=== PATIENT | male | born 1955 | race Caucasian/White ===

== ENCOUNTER 2016-12-06 16:19 | Emergency (ER) | payer BC ==
[~2016-12-06] VITALS: Ht 190.5 cm; Wt 71.7 kg
[~2016-12-06 16:19] MED LIST: CYCLOBENZAPRINE10 MG ORAL; KEFLEX500 MG ORAL; NAPROSYN500 M1 ORAL; NASONEX17 GM NASAL; NORCO 5-325 TA1 EACH ORAL; PROAIR HFA8.5 GM INH; ROBAXIN500 MG PO
[2016-12-06 16:43] VITALS: BP 129/72
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
[2016-12-06] MEDS ORDERED: TIZANIDINE HCL4 MG ORAL (17:22)
[2016-12-06] MEDS ORDERED: AUGMENTIN 875-1 EAC1 ORAL (17:22)
[2016-12-06] MEDS ORDERED: FLONASE ALLERG9.9 ML NS (17:22)
[2016-12-06 17:42] VITALS: BP 132/76
== END 2016-12-06 17:43 | disposition home or self-care (01) ==
LOC: EMR 17:25
DX: J01.10 Acute frontal sinusitis, unspecified (principal); M62.838 Other muscle spasm; Z88.6 Allergy status to analgesic agent; Z91.011 Allergy to milk products
CPT/HCPCS: 99284

== ENCOUNTER 2017-09-10 13:36 | Emergency (ER) | payer SELFPAY ==
[~2017-09-10] VITALS: Ht 190.5 cm; Wt 67.1 kg
[~2017-09-10 13:36] MED LIST changes: +AUGMENTIN 875-1 EAC1 ORAL; +FLONASE ALLERG9.9 ML NS; +TIZANIDINE HCL4 MG ORAL
[2017-09-10 13:50] VITALS: BP 139/71
--- NOTE | 2017-09-10 14:37 | Emergency Room Report ---
History of Present Illness General Chief Complaint: Upper Respiratory Illness Source: Patient, Medical Record Present Illness HPI 62 YO Male presents to the ED c/o: maxillary fullness/ pressure discomfort that is 7/10 in severity with nasal congestion x 6 weeks. pt. reports purulent nasal d/c x 2 days. Patient states that he has a history of nasal polyps that his doctor recommended surgical removal for her. Patient states that he did not undergo the surgery he attempted herbal remedies which reduced his symptoms however patient states that over the course of the last 6 weeks he's had significant sinus pressure with nasal congestion, inability to breathe out of the affected side and new-onset purulent nasal discharge. he denies fevers or chills. Denies trauma, fall, dizziness. he denies history of immunocompromise or diabetes. Denies facial rash. Denies CP, Palpitations, LOC, AMS, dizziness , Changes in Vision, Sensation, paresthesias, or a sudden severe headache. Pt. also requests refill of his albuterol inhaler. Allergies: Coded Allergies: Dairy (Verified Allergy, Mild, 05/17/15) CODEINE (Unverified Allergy, Unknown, Shortness of Breath, 05/30/15) Patient History Past Medical History: see triage record, DM, other - nasal polyps and environmental allergies. Past Surgical History: none Pertinent Family History: none Reviewed Nursing Documentation: PMH: Agreed, PSxH: Agreed Nursing Documentation-PMH Past Medical History: No History, Except For Hx Asthma: Yes - Rhinoplasty in 1976 Review of Systems All Other Systems: negative except mentioned in HPI Physical Exam Vital Signs Date Time Temp Pulse Resp B/P (MAP) Pulse Ox O2 Delivery O2 Flow Rate FiO2 09/10/17 13:40 97.5 54 18 139/71 100 Room Air Sp02 EP Interpretation: reviewed, normal General Appearance: no apparent distress, alert, GCS 15, non-toxic Head: normocephalic, atraumatic Eyes: bilateral eye normal inspection, bilateral eye PERRL, bilateral eye EOMI ENT: hearing grossly normal, normal voice, nasal congestion, other - right frontal maxillary sinus TTP, obvious swollen visible nasal poly in the right nare, some mild thick white/yellow opaque nasal d/c noted. Neck: full range of motion Respiratory: chest non-tender, lungs clear, normal breath sounds, speaking full sentences Cardiovascular #1: regular rate, rhythm Musculoskeletal: back normal, gait/station normal, normal range of motion Neurologic: alert, oriented x3, responsive, motor strength/tone normal, sensory intact, speech normal Skin: normal color, no rash, warm/dry, well hydrated Lymphatic: no adenopathy Medical Decision Making PA Attestation Dr. Peter is my supervising Physician whom patient management has been discussed with. Diagnostic Impression: Primary Impression: Sinusitis with nasal polyps ER Course 62 YO Male presents to the ED c/o: maxillary fullness/ pressure discomfort that is 7/10 in severity with nasal congestion x 6 weeks. pt. reports purulent nasal d/c x 2 days. Patient states that he has a history of nasal polyps that his doctor recommended surgical removal for her. Patient states that he did not undergo the surgery he attempted herbal remedies which reduced his symptoms however patient states that over the course of the last 6 weeks he's had significant sinus pressure with nasal congestion, inability to breathe out of the affected side and new-onset purulent nasal discharge. he denies fevers or chills. Denies trauma, fall, dizziness. he denies history of immunocompromise or diabetes. Denies facial rash. Denies CP, Palpitations, LOC, AMS, dizziness , Changes in Vision, Sensation, paresthesias, or a sudden severe headache. Pt. also requests refill of his albuterol inhaler. Ddx considered but are not limited to URI, pneumonia, PE, strep pharyngitis, meningitis. Vital signs: Pt. is afebrile, the remaining VS are WNL H&PE are most consistent with subacute SINUSITIS secondary to nasal polyps. ORDERS: none required at this time, the diagnosis is clinical ED INTERVENTIONS: None required at this time. d/w pt. conservative treatment of his symptoms with nasal steroids, and a course of oral antibiotics and to follow up with an ENT SPECIALIST. pt given a list of primary care clinics for follow up. d/w pt. to return to the ED with worsening or new symptoms. DISCHARGE: At this time pt. is stable for d/c to home. Will provide printed patient care instructions, and any necessary prescriptions. Care plan and follow up instructions have been discussed with the patient prior to discharge. Last Vital Signs Date Time Temp Pulse Resp B/P (MAP) Pulse Ox O2 Delivery O2 Flow Rate FiO2 09/10/17 13:40 97.5 54 18 139/71 100 Room Air Disposition: HOME, SELF-CARE Condition: Stable Scripts Albuterol Sulfate* (ALBUTEROL SULFATE MDI*) 8.5 Gm Hfa.aer.ad 2 PUFF INH Q3H, #1 INH 0 Refills Prov: Sandie Restrepo 09/10/17 Fluticasone Furoate (FLONASE SENSIMIST) 9.9 Ml [place].susp 2 SPRAYS NS DAILY, #9.9 ML Prov: Sandie Restrepo 09/10/17 Amoxicillin/Potassium Clav 875-125* (AUGMENTIN 875-125 TABLET*) 1 Each Tablet 1 TAB ORAL TWICE A DAY for 10 Days, #20 TAB Prov: Sandie Restrepo 09/10/17 Referrals: NOT CHOSEN IPA/,REFERRING (PCP) Patient Instructions: Sinusitis, Adult, [id number] Additional Instructions: Take medications as directed. Follow up with a ENT SPECIALIST in 3-5 days, even if your symptoms have resolved. --Please review list of primary care clinics, if you do not already have a primary care provider Return sooner to ED if new symptoms occur, or current symptoms become worse. - Please note that this Emergency Department Report was dictated using [employer] adjuster leader technology software, occasionally this can lead to erroneous entry secondary to interpretation by the dictation equipment. Sandie Restrepo Sep 10, 2017 14:37
[2017-09-10] MEDS ORDERED: FLONASE SENSIM9.9 ML NS (14:41)
[2017-09-10] MEDS ORDERED: AUGMENTIN 875-1 EAC1 ORAL (14:41)
[2017-09-10 14:53] VITALS: BP 139/71
[2017-09-10] MEDS ORDERED: ALBUTEROL SULF8.5 GM INH (15:04)
[2017-10-04] MEDS ORDERED: GUAIFENESIN1200 MG PO (14:52)
[2017-10-04] MEDS ORDERED: PROMETHAZINE-D118 ML ORAL (14:52)
[2017-10-04] MEDS ORDERED: CLARITIN-D 121 EAC1 ORAL (14:52)
== END 2017-09-10 14:55 | disposition home or self-care (01) ==
LOC: EMR 14:05
DX: J32.9 Chronic sinusitis, unspecified (principal); J33.9 Nasal polyp, unspecified
CPT/HCPCS: 99283

== ENCOUNTER 2017-10-03 16:57 | Emergency (ER) | payer OTHER ==
[~2017-10-03] VITALS: Ht 190.5 cm; Wt 67.1 kg
[~2017-10-03 16:57] MED LIST changes: +ALBUTEROL SULF8.5 GM INH; +FLONASE SENSIM9.9 ML NS
[2017-10-03 17:06] VITALS: BP 111/78
--- NOTE | 2017-10-03 17:15 | Emergency Room Report ---
History of Present Illness General Chief Complaint: Flu Like Symptoms Present Illness HPI 62-year-old male presents to the emergency department complaining of cough, body -aches, subjective fevers and chills, runny nose and nasal congestion x6 days. Pt reports hx of asthma with increased symptoms requiring use of inhaler which he is now out of. Reports sore throat. denies pain at this time. Patient reports multiple coworkers had similar symptoms just prior to her. Patient also is here with his who has the same symptoms as well. Patient reports that subjective fevers have resolved as of 3 days ago. Denies high fevers, lethargy, neck stiffness, irritability, dehydration, V/D. reports some nausea but describes more decreased appetite. denies abdominal pain. Denies Cp, Palpitations, LOC, AMS, seizures, paresthesias, or changes in Hearing or vision , no Sudden severe HOWELL. Allergies: Coded Allergies: Dairy (Verified Allergy, Mild, 05/17/15) CODEINE (Unverified Allergy, Unknown, Shortness of Breath, 05/30/15) Patient History Past Medical History: see triage record Past Surgical History: none Pertinent Family History: none Immunizations: UTD Reviewed Nursing Documentation: PMH: Agreed, PSxH: Agreed Nursing Documentation-PMH Hx Asthma: Yes - Rhinoplasty in 1976 Review of Systems All Other Systems: negative except mentioned in HPI Physical Exam Vital Signs Date Time Temp Pulse Resp B/P (MAP) Pulse Ox O2 Delivery O2 Flow Rate FiO2 10/03/17 17:06 99.1 99 20 111/78 96 Room Air Sp02 EP Interpretation: reviewed, normal General Appearance: no apparent distress, alert, GCS 15, non-toxic Head: normocephalic, atraumatic Eyes: bilateral eye normal inspection, bilateral eye PERRL ENT: hearing grossly normal, normal voice, TMs + canals normal, uvula midline, nasal congestion Neck: full range of motion, no meningismus, no bony tend Respiratory: chest non-tender, lungs clear, normal breath sounds, speaking full sentences Cardiovascular #1: regular rate, rhythm, normal capillary refill Rectal: deferred Genitourinary: normal inspection Musculoskeletal: back normal, gait/station normal, normal range of motion, non- tender Neurologic: alert, oriented x3, responsive, motor strength/tone normal, sensory intact, speech normal, grossly normal Psychiatric: judgement/insight normal Skin: normal color, no rash, warm/dry, well hydrated Lymphatic: no adenopathy Medical Decision Making PA Attestation Dr. torres is my supervising Physician whom patient management has been discussed with. Diagnostic Impression: Primary Impression: Upper respiratory infection, viral ER Course Pt. 62-year-old male presents to the emergency department complaining of cough, body-aches, subjective fevers and chills, runny nose and nasal congestion x6 days. Pt reports hx of asthma with increased symptoms requiring use of inhaler which he is now out of. Reports sore throat. denies pain at this time. Patient reports multiple coworkers had similar symptoms just prior to her. Patient also is here with his who has the same symptoms as well. Patient reports that subjective fevers have resolved as of 3 days ago. Denies high fevers, lethargy, neck stiffness, irritability, dehydration, V/D. reports some nausea but describes more decreased appetite. denies abdominal pain. Denies Cp, Palpitations, LOC, AMS, seizures, paresthesias, or changes in Hearing or vision , no Sudden severe HOWELL. Ddx considered but are not limited to URI, pneumonia, PE, strep pharyngitis, meningitis. Vital signs: Pt. is afebrile, the remaining VS are WNL H&PE are most consistent with URI- no meningeal signs, oropharynx is not involved, no evidence of bacterial infection at this time. ORDERS: none required at this time, the diagnosis is clinical ED INTERVENTIONS: None required at this time. Nebs not needed will d/c with refills for his albuterol. Lungs are CTA. DISCHARGE: At this time pt. is stable for d/c to home. Will provide printed patient care instructions, and any necessary prescriptions. Care plan and follow up instructions have been discussed with the patient prior to discharge. Last Vital Signs Date Time Temp Pulse Resp B/P (MAP) Pulse Ox O2 Delivery O2 Flow Rate FiO2 10/03/17 17:06 99.1 99 20 111/78 96 Room Air Disposition: HOME, SELF-CARE Condition: Stable Scripts D-Methorphan Hb/Prometh Hcl* (PROMETHAZINE-DM SYRUP*) 118 Ml Syrup 5 ML ORAL Q6H Y for For Cough, #118 ML 0 Refills Prov: Sandie Restrepo 10/03/17 Albuterol Sulfate* (ALBUTEROL SULFATE MDI*) 8.5 Gm Hfa.aer.ad 2 PUFF INH Q3H, #1 INH 3 Refills Prov: Sandie Restrepo 10/03/17 Loratadine/Pseudoephedrine (CLARITIN-D 12 HOUR TABLET) 1 Each Tab.er.12h 1 TAB ORAL EVERY 12 HOURS for 10 Days, #20 TAB Prov: Sandie Restrepo 10/03/17 Guaifenesin (Guaifenesin) 1,200 Mg Tab.er.12h 1200 MG PO BID, #20 TAB Prov: Sandie Restrepo 10/03/17 Patient Instructions: Upper Respiratory Infection, Adult, [id number] Additional Instructions: Take medications as directed. Follow up with a Primary Care Provider in 3-5 days, even if your symptoms have resolved. --Please review list of primary care clinics, if you do not already have a primary care provider Return sooner to ED if new symptoms occur, or current symptoms become worse. - Please note that this Emergency Department Report was dictated using [employer] technology software, occasionally this can lead to erroneous entry secondary to interpretation by the dictation equipment. Sandei Restrepo Oct 03, 2017 17:15
[2017-10-03] MEDS ORDERED: ALBUTEROL SULF8.5 GM INH (17:33)
[2017-10-03] MEDS ORDERED: PROMETHAZINE-D118 ML ORAL (17:33)
[2017-10-03] MEDS ORDERED: GUAIFENESIN1200 MG PO (17:33)
[2017-10-03] MEDS ORDERED: CLARITIN-D 121 EAC1 ORAL (17:33)
[2017-10-03 17:50] VITALS: BP 111/78
[2017-10-04] MEDS ORDERED: GUAIFENESIN1200 MG PO (14:52)
[2017-10-04] MEDS ORDERED: PROMETHAZINE-D118 ML ORAL (14:52)
[2017-10-04] MEDS ORDERED: CLARITIN-D 121 EAC1 ORAL (14:52)
== END 2017-10-03 17:50 | disposition home or self-care (01) ==
LOC: EMR 17:50
DX: J06.9 Acute upper respiratory infection, unspecified (principal); B34.9 Viral infection, unspecified; J45.909 Unspecified asthma, uncomplicated; Z88.6 Allergy status to analgesic agent
CPT/HCPCS: 99283

== ENCOUNTER 2017-10-15 12:45 | Emergency (ER) | payer OTHER ==
[~2017-10-15] VITALS: Ht 190.5 cm; Wt 61.2 kg
[~2017-10-15 12:45] MED LIST changes: +CLARITIN-D 121 EAC1 ORAL; +GUAIFENESIN1200 MG PO; +PROMETHAZINE-D118 ML ORAL
[2017-10-15 13:10] VITALS: BP 128/72
[2017-10-15] MEDS ORDERED: AMOXICILLIN500 MG ORAL (13:33)
[2017-10-15] MEDS ORDERED: PROMETHAZINE-C118 M1 ORAL (13:33)
[2017-10-15] MEDS ORDERED: IBUPROFEN600 MG ORAL (13:33)
[2017-10-15] MEDS ORDERED: PREDNISONE20 MG ORAL ×2 (13:33→13:42)
[2017-10-15] MEDS ORDERED: ALBUTEROL SULF8.5 GM INH (13:36)
--- NOTE | 2017-10-15 13:36 | Emergency Room Report ---
History of Present Illness General Chief Complaint: Flu Like Symptoms Source: Patient, Family Member - Present Illness HPI 62-year-old male presents ER complaining of cough and congestion x2 weeks. Patient complains of subjective fever. Patient complains of non productive cough but "feels sputum in his throat". Patient reports recent history of laryngitis and flu-like symptoms 3 weeks ago. Patient reports a history of sick contacts in the household, presents to ER with his with similar symptoms. Reports history of work contact recently diagnosed with influenza. Patient reports history of asthma, denies wheezing at this time. Patient reports use of albuterol inhaler with no relief of cough symptoms. Patient denies difficulty breathing. Patient denies smoking, recent travel. Patient denies nausea, vomiting, diarrhea, SOB, chest pain. Allergies: Coded Allergies: Dairy (Verified Allergy, Mild, 05/17/15) Patient History Past Medical History: see triage record, asthma Social History: Denies: smoking, alcohol use, drug use Immunizations: UTD Reviewed Nursing Documentation: PMH: Agreed, PSxH: Agreed Nursing Documentation-PMH Past Medical History: No History, Except For Hx Asthma: Yes - Rhinoplasty in 1976 Review of Systems All Other Systems: negative except mentioned in HPI Physical Exam Vital Signs Date Time Temp Pulse Resp B/P (MAP) Pulse Ox O2 Delivery O2 Flow Rate FiO2 10/15/17 12:55 100.8 109 16 128/72 94 Room Air Sp02 EP Interpretation: reviewed, normal General Appearance: no apparent distress, alert, GCS 15, non-toxic Head: normocephalic, atraumatic Eyes: bilateral eye normal inspection, bilateral eye PERRL ENT: hearing grossly normal, normal pharynx, no angioedema, normal voice, uvula midline, moist mucus membranes, other - post nasal drip Neck: full range of motion, supple/symm/no masses Respiratory: chest non-tender, no respiratory distress, no retraction, no accessory muscle use, no wheezing, crackles, speaking full sentences Cardiovascular #1: regular rate, rhythm, no edema Musculoskeletal: back normal, gait/station normal, normal range of motion, non- tender Neurologic: alert, oriented x3, responsive, motor strength/tone normal, sensory intact, speech normal Psychiatric: judgement/insight normal, memory normal, mood/affect normal, no suicidal/homicidal ideation Skin: normal color, no rash, warm/dry, well hydrated Lymphatic: no adenopathy Medical Decision Making PA Attestation Dr. Espinoza is my supervising Physician whom patient management has been discussed with. Diagnostic Impression: Primary Impression: Atypical pneumonia ER Course Pt presents to ED c/o cough and congestion. DDX considered but are not limited to influenza, viral URI, pneumonia, strep throat, rhinitis, sinusitis. VITAL SIGNS Patient is febrile with 100.8 degree fever. Abnormal vital signs likely due to history of sick contacts and history of asthma. ORDERS: none required at this time, diagnosis is clinical. ED INTERVENTIONS:none required at this time, diagnosis is clinical. DISCHARGE: -Rx provided for Amoxicillin. -Rx given for Prednisone. -Rx provided for Albuterol MDI. -Rx given for Promethazine with codeine cough syrup for cough sx. Patient advised not to drink alcohol, drive, or operate heavy machinery while taking cough syrup as this may cause drowsiness. -Rx provided for Motrin at home for fever and pain symptoms. Patient instructed to take at home. At this time pt is stable for d/c to home. Patient stated he is ready to be discharged to home. Discussed plan with Dr. Espinoza who agreed with current treatment. Patient to take medications as instructed Will provide with patient care instructions and any necessary prescriptions. Care plan and follow-up instructions provided. Patient instructed to follow-up with primary care provider in 3 - 5 days. Patient questions asked and answered. ER precautions given. Patient instructed to return to ER immediately for any new or worsening of symptoms including but not limited to increasing SOB, persistent fever. Last Vital Signs Date Time Temp Pulse Resp B/P (MAP) Pulse Ox O2 Delivery O2 Flow Rate FiO2 10/15/17 12:55 100.8 109 16 128/72 94 Room Air Disposition: HOME, SELF-CARE Condition: Stable Scripts Prednisone* (PREDNISONE*) 20 Mg Tablet 40 MG ORAL DAILY for 5 Days, #10 TAB Prov: Kelby Novoa 10/15/17 Albuterol Sulfate* (ALBUTEROL SULFATE MDI*) 8.5 Gm Hfa.aer.ad 2 PUFF INH Q6H, #1 INH 0 Refills Prov: Kelby Novoa.Yash 10/15/17 Ibuprofen* (MOTRIN*) 600 Mg Tablet 600 MG ORAL Q8H Y for For Pain, #30 TAB 0 Refills Prov: Kelby Novoa 10/15/17 Codeine/Promethazine Hcl* (PROMETHAZINE-CODEINE SYRUP*) 118 Ml Syrup 5 ML ORAL Q6H Y for For Cough for 7 Days, ML 0 Refills Prov: Kelby Novoa 10/15/17 Amoxicillin* (AMOXIL*) 500 Mg Capsule 500 MG ORAL EVERY 8 HOURS for 7 Days, #21 CAP Prov: Kelby Novoa 10/15/17 Patient Instructions: Community-Acquired Pneumonia, Adult, [id number] Additional Instructions: Followup with primary care provider in 3 -5 days. Take medications as directed. Patient questions asked and answered. ER precautions given, patient instructed to return to ER immediately for any new or worsening of symptoms including fever, shortness of breath, chest pain. Kelby Novoa Oct 15, 2017 13:36
== END 2017-10-15 14:37 | disposition home or self-care (01) ==
LOC: EMR 13:30
DX: J18.9 Pneumonia, unspecified organism (principal)
CPT/HCPCS: 99283